=== PATIENT | male | born 1995 | race Caucasian/White ===

== ENCOUNTER 2021-11-21 17:26 | Emergency (ER) | payer OTHER ==
[2021-11-21] MEDS ORDERED: Lidocaine 1% PF 2 ML SDV INJECT ONE (17:50)
[2021-11-21] MEDS ORDERED: Bacitracin Oint 1 GM U/D Packet TOP ONE (17:51)
[2021-11-21] MEDS ORDERED: Diphtheria,Pertussis(Acell),Tetanus Vaccine 0.5 ML Syringe IM ONE (17:51)
== END 2021-11-21 18:41 | disposition home or self-care (01) ==
LOC: MW.ED 17:26
DX: S61.012A Laceration without foreign body of left thumb without damage to nail, initial encounter (principal); Z23 Encounter for immunization; W26.0XXA Contact with knife, initial encounter
CPT/HCPCS: 12002; 99282